=== PATIENT | male | born 1960 | race African-American/Black ===

== ENCOUNTER 2017-07-08 11:16 | Inpatient (IN) | payer MEDICARE, MEDICAID ==
[~2017-07-08] VITALS: Ht 170.2 cm; Wt 82.6 kg
[2017-07-08 12:04] LABS: BASOPHILS % 1.1 % (0.0-2.0); EOSINOPHILS % 2.7 % (0.0-5.0); HEMATOCRIT. 42.1 % (42.0-52.0); HEMOGLOBIN. 14.4 g/dL (14.0-18.0); LYMPHOCYTES % 25.4 % (20.0-50.0); MEAN CORPUSCULAR HEMOGLOBIN 33.4 pg (28.0-32.0); MEAN CORPUSCULAR VOLUME 97.6 fL (80.0-94.0); MEAN PLATELET VOLUME 9.2 fl (7.4-10.4); MONOCYTES % 8.5 % (2.0-8.0); NEUTROPHILS % 62.3 % (40.0-76.0); PLATELET 122 x1000/uL (130-400); RED BLOOD CELL COUNT 4.31 mill/uL (4.7-6.1); RED CELL DISTRIBUTION WIDTH 14.6 % (11.6-14.6)
[2017-07-08 12:11] LABS: PARTIAL THROMBOPLASTIN TIME 26.8 sec (23.4-31.0); PROTHROMBIN TIME 10.3 sec (9.4-11.6)
[2017-07-08 12:19] LABS: CARBON DIOXIDE 28 mEq/L (21-32); CHLORIDE 102 mEq/L (98-107); TROPONIN I < 0.02 ng/mL (0.00-0.04)
[2017-07-08] MEDS ORDERED: SODIUM POLYSTYRENE SULFONATE 15 G/60 ML BOT PO ONE (12:30)
[2017-07-08] MEDS ORDERED: SODIUM BICARBONATE 8.4% 1 MEQ/ML 50ML SYR IV ONE (12:30)
[2017-07-08] MEDS ORDERED: LIDOCAINE HCL 1% 20ML VIAL (Pyxis) INJ ONE (13:34)
[2017-07-08] MEDS ORDERED: ACETAMINOPHEN 325MG TABLET PO PRN (15:15)
[2017-07-08] MEDS ORDERED: ONDANSETRON HCL 4MG/2ML VIAL IV PRN (15:15)
[2017-07-08] MEDS ORDERED: MORPHINE SULFATE 2 MG/ML CPJ (NOT FOR IM USE) IV PRN (15:15)
[2017-07-08] MEDS ORDERED: HYDROCODONE/ACETAMINOPHEN 5/325MG TABLET PO PRN (15:15)
[2017-07-08] MEDS ORDERED: DIPHENHYDRAMINE 50MG/ML VIAL IV PRN (15:15)
[2017-07-08] MEDS ORDERED: DOCUSATE SODIUM 100MG CAPSULE PO PRN (15:15)
[2017-07-08] MEDS ORDERED: GUAIFENESIN 200MG/10ML SUGAR FREE UDC PO PRN (15:15)
[2017-07-08] MEDS: CLONIDINE 0.1MG TABLET PO PRN (19:50)
[2017-07-08 20:00] VITALS: BP 187/133
[2017-07-08 20:50] VITALS: BP 226/132
[2017-07-08] MEDS ORDERED: METO50TA5 PO (23:59)
[2017-07-09] VITALS: BP 161/112
[2017-07-09] MEDS ORDERED: REN400 PO (00:03)
[2017-07-09] MEDS ORDERED: FOLI0.8T42 PO (00:03)
[2017-07-09] MEDS: CLONIDINE 0.1MG TABLET PO PRN (02:16)
[2017-07-09 04:00] VITALS: BP 130/97
[2017-07-09] MEDS ORDERED: SEVELAMER CARBONATE 800 MG TABLET PO SCH (07:50)
[2017-07-09 08:00] LABS: BASOPHILS % 1.3 % (0.0-2.0); EOSINOPHILS % 2.2 % (0.0-5.0); HEMATOCRIT. 39.9 % (42.0-52.0); HEMOGLOBIN. 13.7 g/dL (14.0-18.0); LYMPHOCYTES % 21.9 % (20.0-50.0); MEAN CORPUSCULAR HEMOGLOBIN 33.3 pg (28.0-32.0); MEAN CORPUSCULAR VOLUME 97.1 fL (80.0-94.0); MEAN PLATELET VOLUME 9.9 fl (7.4-10.4); NEUTROPHILS % 64.6 % (40.0-76.0); PLATELET 113 x1000/uL (130-400); RED BLOOD CELL COUNT 4.11 mill/uL (4.7-6.1); RED CELL DISTRIBUTION WIDTH 14.5 % (11.6-14.6)
[2017-07-09 08:40] LABS: CARBON DIOXIDE 26 mEq/L (21-32); CHLORIDE 100 mEq/L (98-107); PHOSPHORUS 6.2 mg/dL (2.5-4.9)
[2017-07-09] MEDS ORDERED: FOLIC ACID/VITAMIN B COMP W-C TABLET PO SCH (09:00)
[2017-07-09] MEDS ORDERED: ASPIRIN 81MG EC TABLET PO SCH (09:00)
[2017-07-09] MEDS ORDERED: AMLODIPINE 10MG TABLET PO SCH (09:00)
[2017-07-09 10:00] VITALS: BP 132/90
[2017-07-09 12:00] VITALS: BP 136/88
== END 2017-07-09 11:55 | disposition left against medical advice (07) | DRG 314 ==
LOC: ER 12:44 → 6WST 14:34 → ENRESERV 16:38
PROVIDERS: ADMIT Hospitalist; ATTEND Hospitalist
PROC: 02HV33Z Insertion of Infusion Device into Superior Vena Cava, Percutaneous Approach (ICD-10-PCS; principal; 2017-07-08)
PROC: B548ZZA Ultrasonography of Superior Vena Cava, Guidance (ICD-10-PCS; 2017-07-08)
PROC: 5A1D70Z Performance of Urinary Filtration, Intermittent, Less than 6 Hours Per Day (ICD-10-PCS; 2017-07-08)
DX: T82.868A Thrombosis due to vascular prosthetic devices, implants and grafts, initial encounter (principal); I50.41 Acute combined systolic (congestive) and diastolic (congestive) heart failure; N18.6 End stage renal disease; D69.6 Thrombocytopenia, unspecified; I13.2 Hypertensive heart and chronic kidney disease with heart failure and with stage 5 chronic kidney disease, or end stage renal disease; E87.5 Hyperkalemia; N25.81 Secondary hyperparathyroidism of renal origin; Y83.2 Surgical operation with anastomosis, bypass or graft as the cause of abnormal reaction of the patient, or of later complication, without mention of misadventure at the time of the procedure; I48.91 Unspecified atrial fibrillation; Z53.21 Procedure and treatment not carried out due to patient leaving prior to being seen by health care provider; N20.0 Calculus of kidney; Z99.2 Dependence on renal dialysis; Y92.89 Other specified places as the place of occurrence of the external cause
CPT/HCPCS: 36415; 36556; 71010; 76937; 77001; 80048; 80053; 83605; 83690; 83880; 84100; 84132; 84443; 84484; 85025; 85610; 85730; 87040; 93005; 96374; 99285; C1752; J3490; J7030